=== PATIENT | male | born 1985 | race Two or more races ===

== ENCOUNTER 2019-12-25 14:09 | Emergency (ER) | payer OTHER ==
[~2019-12-25] VITALS: Ht 175.3 cm; Wt 80.3 kg
[2019-12-25 14:31] VITALS: BP 121/77
[2019-12-25] MEDS ORDERED: ACETAMINOPHEN 325 MG TABLET ONE (14:51)
--- NOTE | 2019-12-25 14:56 | NUR ---
INFLUENZA SWAB DONE AND SENT TO LAB.
[2019-12-25] MEDS ORDERED: ACETAMINOPHEN 325 MG TABLET PO ONE (15:00)
== END 2019-12-25 15:51 | disposition home or self-care (01) ==
LOC: ER 14:09
DX: R53.83 Other fatigue (principal); F41.9 Anxiety disorder, unspecified

== ENCOUNTER 2020-12-30 21:54 | Emergency (ER) | payer MEDICAID, OTHER ==
[~2020-12-30] VITALS: Ht 175.3 cm; Wt 77.1 kg
[2020-12-30 22:08] VITALS: BP 121/69
== END 2020-12-30 22:50 | disposition home or self-care (01) ==
LOC: ER 21:57
DX: Z02.89 Encounter for other administrative examinations (principal); F15.10 Other stimulant abuse, uncomplicated; F17.200 Nicotine dependence, unspecified, uncomplicated